=== PATIENT | female | born 1950 | race Asian ===

== ENCOUNTER 2023-02-19 06:33 | Day surgery (SDC) | payer OTHER ==
[2023-02-19] MEDS ORDERED: CEFAZOLIN SODIUM 1 GM/VIAL ONE (07:35)
[2023-02-19] MEDS ORDERED: Ringers Lactate 1,000 ML IV ONE (07:35)
[2023-02-19] MEDS ORDERED: NS 0.9% VIAL 20 ML ONE (07:47)
[2023-02-19] MEDS ORDERED: HEPARIN 5000 UNIT/ML 1 ML VIAL ONE (07:47)
[2023-02-19] MEDS ORDERED: LIDOCAINE 1% MPF 30 ML VIAL ONE (07:48)
[2023-02-19] MEDS ORDERED: MIDAZOLAM HCL 2 MG/2 ML INJ ONE (08:04)
[2023-02-19] MEDS ORDERED: propofoL 200 MG/20 ML VIAL IV ONE (08:04)
[2023-02-19] MEDS ORDERED: LIDOCAINE 2% MPF 5 ML VIAL ONE (08:04)
[2023-02-19] MEDS ORDERED: ONDANSETRON 4 MG/2 ML VIAL ONE (08:04)
[2023-02-19] MEDS ORDERED: FENTANYL CITR 100 MCG/2 ML ONE (08:04)
[2023-02-19] MEDS ORDERED: KETOROLAC 30 MG/ML INJ ONE (08:04)
[2023-02-19 08:19] LABS: Potassium 4.4 mEq/L (3.5-5.1)
[2023-02-19 08:21] LABS: Absolute Lymphocytes (CBC) 1.8 K/uL (0.7-4.9); Hematocrit 38.1 % (36.0-45.0); Lymphocytes % 25.2 % (15.3-44.8); MCV 83.1 fL (80-100); MPV 7.9 fL (7.6-11.3); Platelets 344 thou/uL (152-406); RBC Red Blood Cell Count 4.59 M/uL (3.86-4.86)
[2023-02-19] MEDS ORDERED: Phenylephrine HCl 10 MG/ML 1 ML VIAL ONE (09:03)
--- NOTE | 2023-02-19 09:29 | P.OP ---
Date of Service: 02/19/23 Preop diagnosis: Bilateral breast cancer Postop diagnosis: Same Procedure performed: Left IJ insertion of Port-A-Cath, interpretation of intraoperative fluoroscopy Surgeon: Pascual Wilkins MD Search Engine Optimization Manager: Treva FRANCIS Estimated blood loss: Minimal Specimen: None Findings: Normal anatomy Anesthesia: General Complications: None Drains: None Fluids and blood products: Nonapplicable Disposition: Recovery room Operative note: Patient brought to the OR and placed in supine position. General anesthesia begun. Patient prepped and draped in the usual sterile fashion. Lidocaine 1% infiltrated locally. 18-gauge needle used to access the left internal jugular vein. Guidewire passed and position confirmed with fluoroscopy. 3 cm counterincision made on the left anterior chest. Subcutaneous tissue divided and pocket created. Bleeding controlled cautery. Tunneling device used to tunnel the catheter between the 2 wounds. Then the tip of the catheter placed under fluoroscopy and submitted technique and the SVC. Port-A-Cath device attached to the catheter and then the port attached to the subcutaneous tissue with 3-0 Vicryl. Port flushed with heparin and packed with heparin with good blood flow. 3-0 chromic used to approximate subcutaneous tissue and close skin. Sterile dressing applied and patient awakened. Patient taken to recovery room in good general condition. Chest x-ray has been ordered. CC: Dr. Ovalles's office
[2023-02-19] MEDS ORDERED: HYDROCODONE/APAP 7.5/325 MG TAB PO PRN (09:31)
[2023-02-19] MEDS ORDERED: Mastisol Adhesive Liq ONE (09:33)
[2023-02-19 09:44] VITALS: TEMP 97
--- NOTE | 2023-02-19 10:07 | RAD REPORT ---
EXAM DESCRIPTION: RADChest Single View02/19/2023 10:02 am CLINICAL HISTORY: Device placement/central venous catheter placement IMPRESSION: Central venous catheter has been placed into the superior vena cava. No pneumothorax
--- NOTE | 2023-02-19 10:15 | RAD REPORT ---
EXAM DESCRIPTION: RAD - Fluoroscopy <1 Hour - 02/19/2023 10:03 am CLINICAL HISTORY: Device placement central venous catheter placement FINDINGS: A central venous catheter was placed into the superior vena cava. Two fluoroscopic spot im ages are submitted. Fluoroscopy time 0.3 minutes The examination was performed by Dr. Wilkins
[2023-02-19 10:36] VITALS: BP 136/64; O2SAT 100
[2023-02-19] MEDS ORDERED: HYDROCODONE/APAP 7.5/325 MG TAB ONE (11:14)
--- NOTE | 2023-02-20 07:53 | EKG ---
Test Date: 2023-02-19 Test Time: 07:30:40 Binding Bench Worker: NALLELY MEASUREMENT RESULTS: Intervals: Rate: 94 TX: 184 QRSD: 64 QT: 364 QTc: 455 [place]: P: 66 TX: 184 QRS: -16 T: 39 INTERPRETIVE STATEMENTS: Poor data quality, interpretation may be adversely affected Normal sinus rhythm Normal ECG No previous ECG available for comparison Electronically Signed On 02-20-23 07:50:40 CDT by Milind Rosa
--- NOTE | 2023-02-21 18:08 | EKG ---
Test Date: 2023-02-19 Test Time: 07:34:58 Family Preservation Officer: NALLELY MEASUREMENT RESULTS: Intervals: Rate: 95 GA: 160 QRSD: 62 QT: 356 QTc: 447 [place]: P: 61 GA: 160 QRS: -21 T: 18 INTERPRETIVE STATEMENTS: Normal sinus rhythm Low voltage QRS Borderline ECG Compared to ECG 02/19/2023 07:30:40 Low QRS voltage now present Electronically Signed On 02-21-23 18:04:33 CDT by Milind Rosa
== END 2023-02-19 11:30 | disposition home or self-care (01) ==
LOC: OR 06:33
PROVIDERS: ATTEND Surgery
PROC: 0JH60WZ Insertion of Totally Implantable Vascular Access Device into Chest Subcutaneous Tissue and Fascia, Open Approach (ICD-10-PCS; principal; 2023-02-19 08:30)
DX: C50.912 Malignant neoplasm of unspecified site of left female breast (principal); C50.911 Malignant neoplasm of unspecified site of right female breast; I10 Essential (primary) hypertension; D50.9 Iron deficiency anemia, unspecified; M19.90 Unspecified osteoarthritis, unspecified site
CPT/HCPCS: 36415; 71045; 76000; 80048; 85025; 93005; A4216; J0690; J1644; J2001; J2250; J2371; J2405; J2704; J3010; J7120

== ENCOUNTER 2023-06-27 06:09 | Day surgery (SDC) | payer OTHER ==
[2023-06-26 13:17] LABS: Absolute Basophils 0.1 K/uL (0-0.5); Absolute Lymphocytes (CBC) 2.6 K/uL (0.7-4.9); Absolute Monocytes 1.2 K/uL (0.1-1.3); Absolute Neutrophil 10.3 K/uL (1.8-8.0); Basophils % 0.6 % (0-1.3); Eosinophils % 0.3 % (0-4.4); Hemoglobin 10.4 g/dL (12.0-15.0); Lymphocytes % 18.3 % (15.3-44.8); MCH 27.2 pg (27.0-35.0); MCHC 32.5 g/dL (32.0-36.0); MCV 83.7 fL (80-100); MPV 7.3 fL (7.6-11.3); Monocytes % 8.2 % (3.3-12.3); Neutrophils % 72.6 % (41.7-73.7); Platelets 409 thou/uL (152-406); RBC Red Blood Cell Count 3.83 M/uL (3.86-4.86); Red Cell Distribution Width 16.6 % (12.1-15.2)
--- NOTE | 2023-06-26 17:47 | RAD REPORT ---
EXAM DESCRIPTION: RAD - Chest Pa And Lat (2 Views) - 06/26/2023 1:15 pm CLINICAL HISTORY: pre op pending mastectomy. Hypertension COMPARISON: Chest Single View dated 02/19/2023 TECHNIQUE: PA and lateral views of the chest were obtained. FINDINGS: Left chest wall medication port unchanged in position. The lungs are clear. Heart size is normal and central vasculature is within normal limits. No pleural effusion or pneumothorax seen. No acute bony finding noted. IMPRESSION: No acute cardiopulmonary process.
[2023-06-27] MEDS: Ringers Lactate 1,000 ML IV ONE (06:18)
[2023-06-27] MEDS ORDERED: SCOPOLAMINE HYDROBROMIDE PATCH TD ONE (06:25)
[2023-06-27] MEDS ORDERED: dexAMETHasone 10 MG/ML VIAL ONE (06:38)
[2023-06-27] MEDS ORDERED: FENTANYL CITR 100 MCG/2 ML ONE ×2 (06:38→08:12)
[2023-06-27] MEDS ORDERED: MIDAZOLAM HCL 2 MG/2 ML INJ ONE (06:39)
[2023-06-27] MEDS ORDERED: DEXMEDETOMIDINE HCL 200 MCG/2 ML VIAL ONE (06:39)
[2023-06-27] MEDS ORDERED: EPINEPHRINE 1 MG/ML VIAL ONE (06:39)
[2023-06-27] MEDS ORDERED: MAGNESIUM SULFATE 1 gm IVPB 1 GM/100 ML BAG IV ONE (06:40)
[2023-06-27] MEDS ORDERED: BUPIVACAINE 0.25% PF 30 ML VIAL ONE (06:40)
[2023-06-27] MEDS ORDERED: ROCURONIUM 50 MG/5 ML VIAL IV ONE (07:27)
[2023-06-27] MEDS ORDERED: ONDANSETRON 4 MG/2 ML VIAL ONE (07:27)
[2023-06-27] MEDS ORDERED: propofoL 200 MG/20 ML VIAL IV ONE (07:27)
[2023-06-27] MEDS ORDERED: LIDOCAINE 2% MPF 5 ML VIAL ONE ×2 (07:28→08:12)
[2023-06-27] MEDS: CEFAZOLIN SODIUM 2 GM/VIAL ONE (07:36)
[2023-06-27] MEDS: METHYLENE BLUE 1% 10 ML VIAL ONE (07:56)
--- NOTE | 2023-06-27 08:12 | RAD REPORT ---
EXAM DESCRIPTION: NM Lymphoscintigraphy CLINICAL HISTORY: C50.919, LEFT BREAST SENTINEL NODE INJECTION COMPARISON: Chest Pa And Lat (2 Views) dated 06/26/2023 TECHNIQUE: The patient received intradermal injection in the lateral and medial right areolar left breast, dose was approximately 261 uCi of Lymphoseek, prior anterior planar imaging of the chest and axillary regions. FINDINGS: Expected intense uptake at the regions of intradermal injection. No evidence of axillary ann uptake. No other ann uptake in the chest wall including along the ext ernal thoracic chain. IMPRESSION: No sentinel left axillary lymph nodes were identified.
[2023-06-27] MEDS ORDERED: NS 0.9% VIAL 10 ML ONE ×3 (08:28→10:27)
[2023-06-27] MEDS ORDERED: KETAMINE HCL IN 0.9 % NACL 50 MG/5 ML SYRINGE IV ONE (08:30)
[2023-06-27] MEDS ORDERED: Mastisol Adhesive Liq ONE (09:11)
[2023-06-27] MEDS ORDERED: HYDROCODONE/APAP 5/325 MG TAB PO PRN (10:29)
--- NOTE | 2023-06-27 10:38 | P.OP ---
Date of Service: 06/27/23 Preop diagnosis: Bilateral breast cancer Postop diagnosis: Same Procedure performed: Left breast simple mastectomy with sentinel node biopsy, right modified radical mastectomy Surgeon: Pascual Wilkins MD Bingo Manager: Treva FRANCIS Estimated blood loss: Minimal Specimen: Left sentinel node, left breast, right breast and right axillary dissection Findings: Negative sentinel node and margins free on both sides Anesthesia: General Complications: None Drains: JORGE A #10 flat2 on the right side, 1 on the left side Fluids and blood products: Nonapplicable Disposition: Recovery room Operative note: Patient brought to the OR and placed in supine position. General anesthesia began. Under sterile condition methylene blue injected in the left periareolar region. Left breast massaged. Then, both breasts prepped and draped in the usual sterile fashion. Co. device used to identify the left sentinel node. 3 cm incision made in the left axilla. Subcutaneous tissue divided and a blue lymph node identified. All counts recorded in the medical records. The blue lymph node excised and sent to pathology for frozen section. Frozen section revealed no evidence of metastatic disease. Wound irrigated and bleeding controlled cautery. 3-0 chromic used to approximate subcu tissue and close skin. Then a standard mastectomy incision made over the left breast. Approximately 20 x 10 cm. 15 blade used and subcutaneous tissue divided. Bleeding controlled cautery. Flaps created in the standard fashion. Superiorly the flap proceeded to clavicle, inferiorly to the insertion of the rectus abdominis muscle, medially to the sternal border and laterally to the anterior border of the latissimus dorsi. All breast tissue of the pectoralis fascia removed. Bleeding controlled with cautery. Breast labeled appropriately and margin check was performed which revealed the margins to be negative. Entire wound irrigated and bleeding controlled cautery. #10 flat JORGE A drain placed and secured with 3-0 nylon under the flap. 2-0 chromic in 0 chromic used to reapproximate subcu tissue and close skin. Sterile dressing applied. Then this same incision was made on the right breast. The breast itself had inversion of the nipple with obvious invasion of the cancer in that area. All breast tissue was removed and sent to pathology for margin check. A large lymph node was present in the specimen. All margins were negative. Then a axillary dissection was performed. Axillary vein, thoracodorsal neurovascular bundle, long thoracic neurovascular bundle were identified. All lymphatic tissue were dissected carefully and bleeding controlled cautery and clips as needed. Lymphatic dissection was sent to pathology. Nahid's lymph nodes were sampled as well. Entire wound was irrigated and bleeding controlled cautery. 2 Kenny-Pyle drain #10 flat were placed in the wound. 1 drain was placed in the axilla and the other 1 under the flap. Drains were secured with 3-0 nylon. 2-0 chromic and 3-0 chromic was used to reapproximate subcutaneous tissue and close skin. Sterile dressing was applied and patient awakened and taken to recovery room in good general condition. Nerve block was performed by anesthesia at the end of the case. CC: Dr. Desai's office
[2023-06-27] MEDS ORDERED: Ringers Lactate 1,000 ML IV ONE (11:56)
[2023-06-27 12:50] VITALS: O2SAT 100
[2023-06-27 14:40] VITALS: BP 129/53; TEMP 97.9
== END 2023-06-27 14:20 | disposition home or self-care (01) ==
LOC: OR 06:09 → EDSTATUS 07:30 → OR 14:20
PROVIDERS: ATTEND Surgery
PROC: 07B50ZX Excision of Right Axillary Lymphatic, Open Approach, Diagnostic (ICD-10-PCS; 2023-06-27)
PROC: 0HBU0ZZ Excision of Left Breast, Open Approach (ICD-10-PCS; principal; 2023-06-27 07:30)
PROC: 0HTT0ZZ Resection of Right Breast, Open Approach (ICD-10-PCS; 2023-06-27 07:30)
DX: C50.912 Malignant neoplasm of unspecified site of left female breast (principal); C50.911 Malignant neoplasm of unspecified site of right female breast; Z17.0 Estrogen receptor positive status [ER+]
CPT/HCPCS: 36415; 71046; 78195; 80048; 85025; 88307; 88309; 88329; 88333; A4216; A9520; J0171; J1100; J2001; J2250; J2405; J2704; J3010; J3475; J7120

== ENCOUNTER → 2024-04-07 | Day surgery (SDC) | payer OTHER ==
[~2024-04-07] MED LIST: BUPIVACAINE 0.5% PF 10 ML VIAL ONE; CEFAZOLIN SODIUM 2 GM/VIAL ONE; FENTANYL CITR 100 MCG/2 ML ONE; KETOROLAC 30 MG/ML INJ ONE; LIDOCAINE 2% MPF 5 ML VIAL ONE; ONDANSETRON 4 MG/2 ML VIAL ONE; Ringers Lactate 1,000 ML IV ONE; SCOPOLAMINE HYDROBROMIDE PATCH TD ONE; propofoL 200 MG/20 ML VIAL IV ONE
[2024-04-07 08:02] LABS: Absolute Eosinophils 0.1 K/uL (0-0.5); Absolute Lymphocytes (CBC) 1.3 K/uL (0.7-4.9); Absolute Monocytes 0.7 K/uL (0.1-1.3); Absolute Neutrophil 4.3 K/uL (1.8-8.0); Basophils % 0.6 % (0-1.3); Eosinophils % 2.1 % (0-4.4); Hematocrit 38.5 % (36.0-45.0); Hemoglobin 12.9 g/dL (12.0-15.0); Lymphocytes % 19.8 % (15.3-44.8); MCH 29.3 pg (27.0-35.0); MCHC 33.5 g/dL (32.0-36.0); MCV 87.5 fL (80-100); MPV 7.6 fL (7.6-11.3); Monocytes % 10.9 % (3.3-12.3); Neutrophils % 66.6 % (41.7-73.7); Nucleated Red Blood Cells % 0.1 % (0-0); Platelets 267 thou/uL (152-406)
[2024-04-07 08:17] LABS: Anion Gap 2.6 mEq/L (5.0-15.0); Potassium 4.6 mEq/L (3.5-5.1)
[2024-04-07] MEDS: BUPIVACAINE 0.5% PF 10 ML VIAL SQ ONE ×2 (09:57)
--- NOTE | 2024-04-07 10:09 | P.OP ---
Date of Service: 04/07/24 Preop diagnosis: Right breast cancer, status post Port-A-Cath placement Postop diagnosis: Same Procedure performed: Removal left chest Port-A-Cath Surgeon: Pascual Wilkins MD Pipe Cleaning Machine Operator: None Estimated blood loss: Minimal Specimen: Port-A-Cath device for identification only Findings: Normal anatomy Anesthesia: General Complications: None Drains: None Fluids and blood products: Nonapplicable Disposition: Recovery room Operative note: Patient brought to the OR and placed in supine position. General anesthesia began. Patient prepped and draped in usual sterile fashion. Marcaine 0.5% infiltrated locally. 15 blade used to make a 3 cm incision over the left anterior chest on top of the Port-A-Cath device. Subcutaneous tissue divided. Bleeding controlled with cautery. Port-A-Cath device identified and freed from the surrounding tissue with sharp and blunt dissection. Port-A-Cath device removed and sent to pathology for identification. Wound irrigated and bleeding controlled cautery. 3-0 chromic used to approximate subcutaneous tissue and close skin. Sterile dressing applied. Patient awakened and taken to recovery room in good general condition. CC: Dr. Dwyer's office
[2024-04-07 10:45] VITALS: O2SAT 100
[2024-04-07 14:25] VITALS: BP 144/71; TEMP 98.3
--- NOTE | 2024-04-08 12:00 | EKG ---
Test Date: 2024-04-07 Test Time: 08:48:53 Wildland Firefighter: JOHNIE MEASUREMENT RESULTS: Intervals: Rate: 76 MS: 194 QRSD: 62 QT: 374 QTc: 420 [place]: P: 81 MS: 194 QRS: -16 T: 57 INTERPRETIVE STATEMENTS: Normal sinus rhythm Low voltage QRS Borderline ECG Compared to ECG 02/19/2023 07:34:58 No significant changes Electronically Signed On 04-08-24 12:00:13 [employer] by Narinder Oneill
== END | disposition home or self-care (01) ==
LOC: OR 07:30
PROVIDERS: ATTEND Surgery
PROC: 0JPT0WZ Removal of Totally Implantable Vascular Access Device from Trunk Subcutaneous Tissue and Fascia, Open Approach (ICD-10-PCS; principal; 2024-04-07 09:32)
DX: C50.911 Malignant neoplasm of unspecified site of right female breast (principal); Z45.2 Encounter for adjustment and management of vascular access device
CPT/HCPCS: 85025; 80048; 36415; 88300; 36590; J2704; J2003; J3010; J2405; J7120; 93005